=== PATIENT | female | born 1980 | race Caucasian/White ===

== ENCOUNTER 2018-06-22 07:32 | Day surgery (SDC) | payer OTHER ==
--- NOTE | 2018-06-21 20:34 | PDGENHP ---
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 ~~Sacroiliac Joint pain (LEFT>RIGHT) 5. 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 ~Ministerioenjoys running. Snehal's~bilateral~hip pain (L>R)~started 7 years ago, with~no~recalled trauma or injury, and with~no~previous complaints.~Ministeriohas~a known history of hip dysplasia. Presentation today is of~anterolateral~left~hip, anterior Right hip~pain. ~The hip~does~wake her~at night and~does~click and catch on~her. Sitting~can be a real struggle~for her.~Ministeriodoes~report suffering from lower back pain episodes. Ministeriohas~participated in physical therapy (several months)~and has~tried other conservative measures including massage therapy.~Shannan~has not~received sufficient symptomatic improvement. Ministeriohas~utilized medication for pain management, including NSAID and OTC acetaminophen, at one time Percocet~Ministeriohas used medication since the pain began. Ministeriounderstands that~shannan~has a hip and pelvis problem which should be researched and wishes to get a better understanding of~her~hip status, followed by an establishment of a treatment strategy, hoping~shannan~would be able to get back to~her~well being active life. History: Past medical history:~~ None which is relevant~ Relevant familial history:~None which is relevant~ Past surgical history:~ No. Surgery Anesthesia 1 Laparoscopies x3 for endometriosis general Ministeriodenies problematic issues with general anesthesia in the past. I have reviewed, verified and agree with the past medical, surgical, family and social history. Current Medications:~currently has no medications in their medication list. ALLERGIES:~has no allergies on file. Objective: Physical Examination: Ministeriois 5~feet~4~inches tall and weighs~205~Lbs. Ministeriois AAO x3; she~is well-nourished, in NAD. Skin is warm and dry. ~Breathing is non-labored. ~CV with RRR by pulse. Abdomen is soft, NTND. Currently,~she~walks with a~abnormal~antalgic gait favoring Left side~gait. Trendelenburg sign is~negative~and proprioception~is reduced,~both~sides. She~presents~with no~signs of joint laxity.~Beightons Score:~0 Lower spine examination is~positive~for sciatic or femoral nerve irritation with positive~SLR RIGHT SIDE. Range of motion of the spine is~normal~for flexion , extension, and rotations,~with no~associated pain. Strength, Sensation and pulses are~normal -~bilaterally Ankles and knees exams are~normal~and~no~mal-alignment is evident.~ Shannan~has~no leg length discrepancy. Thigh circumference is~symmetric~with no evidence for muscle atrophy~on both~ sides. Hip ROM (degrees): FL ER At 90~hip FL IR At 90~hip FL AB AD EX IR Neutral hip ER Neutral hip R 105 45 10 45 5 5 25 50 L 110 55 25 40 5 5 30 40 Specific hip and pelvis tests: Impingement Test NATALEE Roll Add. Longus R +++ +++ Negative +++ L +++ +++ +++ Negative Glut. Med ITB Posterior Imp R +++ 5/5 strength +++ 5/5 strength Negative L +++ 5/5 strength Negative 5/5 strength Negative Squeeze test measured~normal Bony Symphysis pubis is~painful~to touch while concentric activity of the rectus abdominis, does not~produce pain at its insertion. Ilio Psos specific tests are~positive for pain during cycling for~both hips~and no snap. HF has~good strength pain~both hips. Greater trochanteric burse is~painful~on the left hip. Piriformis tests: FAIR is~negative,~with no~local signs of neuritis related to sciatic nerve. SIJs examination is~produces pain~(LEFT>RIGHT)~on both sides~with~normal~NATALEE in relation and local tenderness. Hamstrings tests~are negative~functional contraction and~positive~tendinopathy~ both hips.~(RIGHT >LEFT) On a daily basis, the following percentages reflectEmelina's overall total pain: Deep hip:~35% GT:~5% SIJ: 50% Hamstrin% Imaging: Radiology studies which I~have personally reviewed, analyzed and measured are below: XR: AP of the hip and pelvis: Performed in a~good~technique Coccyx~at the level of the~pubic symphysis 6~degrees [place]~Lines are interrupted. Minimal~Pathological signs are seen in the Symphysis Pubis.~ Minimal~Pathological signs are seen at the Ischial~tuberosity. ~ Specific measurements show: NSA~ LCE Sourcil~Angle Sharp's angle Lat. Cam Lat. Pincer C.Over~sign Head~Coverage % ATDmm R N 22 12 42 - - - 74 N L N 24 11 38 - - - 79 N Pos. wall sign ISS NAD ~~Dysplasia Comments R Negative Negative 24~mm +++ L Negative Negative 22~mm ++ Sclerosis Sup. Lat. OA Cysts Joint Space-WBZ Joint Space-Medial R Negative Negative Negative 7.6~mm 5.3~mm L Negative Negative Negative 5.9~mm 4.8~mm X Table lateral: Anterior cam lesion is~seen~on both hips. Alpha Angle: ~ Right~64~dergrees Left~62~degrees Impression and plan:Tato Brian~is a~37 y.o.~active female~suffering from~Bilateral~hip pain due to Hip Dyplasia~and cam type CARMEN~causing significant disability to~her~and altering ~her~sport and life activities. Physical examination, imaging, and~her~story correspond with the diagnosis mentioned above. I explained that hip dysplasia is a condition wherein the hip joint has excessive play~and instability due to a variety of factors, including the depth and adequacy of the socket, the orientation of the femur bone, and ligament laxity around the hip joint. Dysplasia ranges in severity from borderline to sheree, with treatment options being specific to the specific nature of the problem. Left untreated, the instability in the hip joint can cause progressive tearing of the labrum and deterioration of the surface cartilage, ultimately resulting in progressive osteoarthritis of the hip. I explained that femoroacetabular impingement (CARMEN - Cam type) arises due to a bony or soft tissue conflict between the femur (ball) and acetabulum (socket) caused by an abnormality in the shape of the femoral head and neck. Over time, repetitive impingement can result in damage to the labrum and adjacent surface cartilage within the socket, ultimately giving rise to progressive osteoarthritis of the hip. I explained that although a labral tear can be a source of pain, it is rarely the root of the problem and typically occurs secondary to an underlying abnormality in the shape and mechanics of the hip joint. I reviewed conservative treatment options for Dysplasia and CARMEN including activity modification to avoid positions of impingement or instability, physical therapy, non-steroidal anti-inflammatory medications, and various injections (corticosteroid and PRP) aimed at reducing inflammation in the hip joint or/and preventing dynamic instability and impingement. PRP injections may promote healing and reduce symptoms in certain cases but it will not repair chronically damaged tissue. Although these measures may help to buy time~and reduce current level of symptoms, they are not a definitive solution to the problem given the underlying abnormality in the shape of the hip joint. Patients who have failed conservative management and continue to experience symptoms are candidates for definitive surgical treatment, which may consist of hip arthroscopy alone or in combination with more invasive bony realignment procedures of the hip socket and/or femur called periacetabular osteotomy (REINIER) or derotational femoral osteotomy (DFO). Hip arthroscopy typically includes treating the labrum with either repair or reconstruction of the torn labrum; as well as addressing the underlying abnormalities by restoring the normal shape to the hip joint. If the cartilage is damaged a Microfracture surgical procedure may also be necessary to help stimulate the growth of fibrocartilage. If a patient requires a labral reconstruction or a Microfracture, the initial rehabilitation from the surgery may take longer, but the shelter results are typically favorable. We will refer her for an SI joint injection with Dr. Rubalcava~ Snehal~will review the info presented. In order to obtain more detailed information regarding the alignment, orientation, and shape of the bony hip and pelvis I will order a CT scan to be performed. The results of the CT scan, including femoral torsion and acetabular version measured values and 3D images, will aid me in deciding on the best treatment strategy and surgical pre-planning. In order to better evaluate the soft tissues and cartilage of the hip joint, I will order an MRI scan. Ministeriois going to contact us after completing her~imaging studies. SnehalTatois happy with this plan. I have also supplied~her~with handouts, outlining the expected surgical treatment and rehab involved. I wish~Ministerioall the best, ~~ Ángel Villanueva, PAC History Information - Allergies/Home Medication List Allergies/Adverse Reactions: adhesive tape Allergy (Verified 06/09/18 12:42) Rash latex Allergy (Verified 06/09/18 12:42) Rash Home Medications: Herbals/Supplements -Info Only 06/09/18 [Last Taken Unknown] Omeprazole Magnesium 06/09/18 [Last Taken Unknown] I have personally reviewed and updated: medical history - Social History Smoking Status: Former smoker Review of Systems Review of Systems: Physical Exam Physical Exam:
--- NOTE | 2018-06-22 07:47 | PDANEPAE ---
ANE History of Present Illness hip pain ANE Past Medical History - Cardiovascular History Hx Hypertension: No Hx Arrhythmias: Yes Hx Chest Pain: No Hx Coronary Artery / Peripheral Vascular Disease: No Hx CHF / Valvular Disease: No Hx Palpitations: No Cardiovascular History Comment: heart murmur- pcp monitors - Pulmonary History Hx COPD: No Hx Asthma/Reactive Airway Disease: No Hx Recent Upper Respiratory Infection: No Hx Oxygen in Use at Home: No Hx Sleep Apnea: No Sleep Apnea Screening Result - Last Documented: Negative - Neurologic History Hx Cerebrovascular Accident: No Hx Seizures: No Hx Dementia: No - Endocrine History Hx Diabetes: No Hypothyroid: No Hyperthyroid: No Obesity: yes, mild - Renal History Hx Renal Disorders: Yes Renal History Comment: interstitial cystitis. chronic uti's - Liver History Hx Hepatic Disorders: No - Neurological & Psychiatric Hx Hx Neurological and Psychiatric Disorders: No - Cancer History Hx Cancer: No - Congenital Disorder History Hx Congenital Disorders: No - GI History GERD: no Hx Gastrointestinal Disorders: Yes Gastrointestinal History Comment: reflux - Other Health History Other Health History: wears glasses - Chronic Pain History Chronic Pain: Yes (left hip) - Surgical History Prior Surgeries: laparoscopies for endometriosis x3 in 2004, 2006, 2008. upper GI 2011 or 2012 ANE Review of Systems Review of systems is: negative Review of Systems: - Exercise capacity METS (RN): 4 METS ANE Patient History - Allergies Allergies/Adverse Reactions: adhesive tape Allergy (Verified 06/09/18 12:42) Rash latex Allergy (Verified 06/09/18 12:42) Rash - Home Medications Home medications: home medication list seen and reviewed Home Medications: Herbals/Supplements -Info Only 06/09/18 [Last Taken Unknown] Omeprazole Magnesium 06/09/18 [Last Taken Unknown] - NPO status NPO Status: no food or drink >8 hours - Anes Hx Anes Hx: no prior problems - Smoking Hx Smoking Status: Former smoker - Family Anes Hx Family Anes Hx: none Family Hx Anesthesia Complications: none ANE Labs/Vital Signs - Vital Signs Height: 162.56 cm Weight: 87.543 kg ANE Physical Exam - Airway Neck exam: FROM Mallampati Score: Class 2 Mouth exam: normal dental/mouth exam - Pulmonary Pulmonary: no respiratory distress, clear to auscultation - Cardiovascular Cardiovascular: regular rate and rhythym, no murmur, rub, or gallop - ASA Status ASA Status: II ANE Anesthesia Plan Anesthesia Plan: general endotracheal anesthesia
[2018-06-22] MEDS ORDERED: ACETAMINOPHEN 500 MG TAB PO ONE (07:53)
[2018-06-22] MEDS ORDERED: ceFAZolin 2 GM/DEXTROSE 100 ML IV ONE (07:53)
[2018-06-22] MEDS ORDERED: PREGABALIN 150 MG CAP PO ONE (07:53)
[2018-06-22] MEDS ORDERED: LR 1,000 ML IV ONE (07:54)
[2018-06-22] MEDS ORDERED: MIDAZOLAM 2 MG/2 ML VIAL IVP ONE (08:33)
[2018-06-22] MEDS ORDERED: EPINEPHrine 30 MG/30 ML MDV (0.1 MG/0.1 ML) ONE (08:44)
[2018-06-22] MEDS ORDERED: BUPIVACAINE 0.25% 30 ML SDV ONE (08:44)
[2018-06-22] MEDS ORDERED: ROCURONIUM 100 MG/10 ML VIAL ONE (08:50)
[2018-06-22] MEDS ORDERED: fentaNYL 250 MCG/5 ML INJ ONE (08:50)
[2018-06-22] MEDS ORDERED: LIDOCAINE 2% 2 ML INJ ONE ×2 (08:50)
[2018-06-22] MEDS ORDERED: PROPOFOL/EMULSION 500 MG/50 ML BOTTLE IV ONE (08:50)
[2018-06-22] MEDS ORDERED: DEXAMETHASONE 4 MG/ML VIAL ONE (10:44)
[2018-06-22] MEDS ORDERED: ONDANSETRON 4 MG/2 ML VIAL ONE ×2 (11:26→16:54)
[2018-06-22] MEDS ORDERED: NEOSTIGMINE METHYLSULFATE 5 MG/5 ML SYR ONE (11:59)
[2018-06-22] MEDS ORDERED: GLYCOPYRROLATE 0.2 MG/1 ML VIAL ONE ×2 (11:59)
[2018-06-22] MEDS ORDERED: KETOROLAC 30 MG/1 ML SDV ONE (12:04)
[2018-06-22] MEDS ORDERED: MEPERIDINE 25 MG/0.5 ML AMP IVP PRN (12:14)
[2018-06-22] MEDS ORDERED: PROMETHAZINE HCL 25 MG/ML INJ IVP PRN (12:14)
[2018-06-22] MEDS ORDERED: LR 500 ML IV PRN (12:14)
[2018-06-22] MEDS ORDERED: fentaNYL 100 MCG/2 ML INJ IVP PRN (12:14)
[2018-06-22] MEDS ORDERED: NALOXONE HCL 0.4 MG/ML INJ IVP PRN (12:14)
--- NOTE | 2018-06-22 12:15 | POSTANESTH ---
Post Anesthetic Evaluation Cardiovascular Status: Normal, Stable Respiratory Status: Normal, Stable Level of Consciousness/Mental Status: Can Participate in Eval Pain Control: Adequate, Prn Tx Ordered Nausea/Vomiting Control: Adequate, Prn Tx Ordered Complications Possibly Related to Anesthesia: None Noted
[2018-06-22] MEDS ORDERED: fentaNYL 100 MCG/2 ML INJ ONE (12:25)
--- NOTE | 2018-06-22 13:45 | POSTOPPROG ---
Post Op Note Date of Operation: 06/22/18 Surgeon: Elliott Cooper Box Inspector: Dr. Park Anesthesia: GET(General Endotracheal) Pre-op Diagnosis: LEFT CARMEN Post-op Diagnosis: LEFT CARMEN Procedure: Left Hip Arthroscopy Inf/Abcess present in the surg proc area at time of surgery?: No
[2018-06-22] MEDS ORDERED: OXYCODONE/APAP 5/325 TAB PO ONE ×2 (14:23→17:15)
[2018-06-22] MEDS ORDERED: OXYCODONE/APAP 5/325 TAB ONE (14:28)
[2018-06-22 16:27] VITALS: BP 119/67
[2018-06-22] MEDS ORDERED: ONDANSETRON DISINTEGRATING 4 MG TAB ONE (17:03)
[2018-06-22] MEDS ORDERED: ONDANSETRON DISINTEGRATING 4 MG TAB PO ONE (17:15)
== END 2018-06-22 17:25 | disposition home or self-care (01) ==
LOC: FSGY 07:32
PROVIDERS: ATTEND Orthopaedic Surgery Sports Medicine
PROC: 0SQB4ZZ Repair Left Hip Joint, Percutaneous Endoscopic Approach (ICD-10-PCS; principal; 2018-06-22 08:30)
PROC: BQ111ZZ Fluoroscopy of Left Hip using Low Osmolar Contrast (ICD-10-PCS; principal; 2018-06-22 08:30)
PROC: 0SBB4ZZ Excision of Left Hip Joint, Percutaneous Endoscopic Approach (ICD-10-PCS; principal; 2018-06-22 08:30)
DX: M25.852 Other specified joint disorders, left hip (principal); Q65.89 Other specified congenital deformities of hip; M65.88 Other synovitis and tenosynovitis, other site; M53.3 Sacrococcygeal disorders, not elsewhere classified; M76.02 Gluteal tendinitis, left hip; K21.9 Gastro-esophageal reflux disease without esophagitis; R01.1 Cardiac murmur, unspecified; Z87.440 Personal history of urinary (tract) infections; Z87.891 Personal history of nicotine dependence
CPT/HCPCS: J0171; J0690; J1100; J1885; J2250; J2405; J2704; J2710; J3010